=== PATIENT | female | born 1985 | race Caucasian/White ===

== ENCOUNTER 2017-01-10 01:31 | Emergency (ER) | payer MEDICAID ==
[~2017-01-10] VITALS: Ht 162.6 cm; Wt 72.7 kg
[2017-01-10 02:26] LABS: APPEARANCE,URINE CLOUDY (CLEAR); GLUCOSE, URINE (UA) NEGATIVE (NEGATIVE); KETONES,URINE NEGATIVE (NEGATIVE); LEUKOCYTE ESTERASE ,URINE LARGE (NEGATIVE); OCCULT BLOOD,URINE MODERATE (NEGATIVE); PROTEIN,URINE POS 1+ (NEGATIVE)
[2017-01-10 02:41] LABS: SQUAMOUS EPITHELIAL CELL,UR Moderate /LPF (None Seen)
[2017-01-10 02:42] LABS: WBC,URINE >100 /HPF (0-5)
[2017-01-10 02:43] LABS: CALCIUM OXALATE CRYSTALS,UR Rare /LPF (None Seen)
[2017-01-10] MEDS ORDERED: CefTRIAXone SODIUM 1 GM/VIAL IM ONE (05:15)
[2017-01-10] MEDS ORDERED: LIDOCAINE HCL/PF 1% 2 ML VIAL IM ONE (05:15)
[2017-01-10] MEDS ORDERED: NAPROXEN 250 MG TABLET PO ONE (05:15)
[2017-01-10] MEDS ORDERED: AZITHROMYCIN 250 MG TABLET PO ONE (05:15)
[2017-01-10 05:34] VITALS: BP 105/77
[2017-01-12 21:06] LABS: GC DNA N.A. AMPLIFY Negative (Negative)
== END 2017-01-10 05:36 | disposition home or self-care (01) ==
LOC: EMS 01:33
DX: N73.0 Acute parametritis and pelvic cellulitis (principal); F17.210 Nicotine dependence, cigarettes, uncomplicated
CPT/HCPCS: 81001; 84703; 87086; 87210; 87491; 87591; 96372; 99284; J0696; J3490; 99285

== ENCOUNTER 2017-11-21 20:47 | Emergency (ER) | payer MEDICAID, OTHER ==
[~2017-11-21] VITALS: Ht 162.6 cm; Wt 81.8 kg
[2017-11-21 22:11] VITALS: BP 124/83
== END 2017-11-21 22:40 | disposition left against medical advice (07) ==
LOC: EMS 20:49
DX: S01.91XA Laceration without foreign body of unspecified part of head, initial encounter (principal); F17.210 Nicotine dependence, cigarettes, uncomplicated; F19.90 Other psychoactive substance use, unspecified, uncomplicated; Z53.21 Procedure and treatment not carried out due to patient leaving prior to being seen by health care provider; W20.8XXA Other cause of strike by thrown, projected or falling object, initial encounter; Y93.89 Activity, other specified; Y92.89 Other specified places as the place of occurrence of the external cause; Y99.8 Other external cause status

== ENCOUNTER 2017-11-21 23:52 | Emergency (ER) | payer OTHER ==
[~2017-11-21] VITALS: Ht 167.6 cm; Wt 70.5 kg
[2017-11-21 23:55] VITALS: BP 113/85
== END 2017-11-22 00:49 | disposition left against medical advice (07) ==
LOC: EMS 23:53
DX: S01.91XA Laceration without foreign body of unspecified part of head, initial encounter (principal); F17.210 Nicotine dependence, cigarettes, uncomplicated; F19.90 Other psychoactive substance use, unspecified, uncomplicated; Z53.21 Procedure and treatment not carried out due to patient leaving prior to being seen by health care provider; X58.XXXA Exposure to other specified factors, initial encounter; Y93.89 Activity, other specified; Y92.89 Other specified places as the place of occurrence of the external cause; Y99.8 Other external cause status

== ENCOUNTER 2020-09-05 13:02 | Emergency (ER) | payer OTHER ==
[~2020-09-05] VITALS: Ht 162.6 cm; Wt 72.7 kg
[2020-09-05] MEDS ORDERED: MAG HYDROX/AL HYDROX/SIMETH 30 ML SUSP UDCUP PO ONE (14:15)
[2020-09-05] MEDS ORDERED: KETOROLAC TROMETHAMINE 30 MG/ML VIAL IVP ONE (14:15)
[2020-09-05] MEDS ORDERED: SODIUM CHLORIDE 0.9% 500 ML IV ONE (14:15)
[2020-09-05] MEDS ORDERED: FAMOTIDINE 10 MG/ML 2 ML VIAL IVP ONE (14:15)
[2020-09-05] MEDS ORDERED: ACETAMINOPHEN 500 MG TABLET PO ONE (14:15)
[2020-09-05] MEDS ORDERED: ONDANSETRON HCL 4 MG/2 ML VIAL IVP ONE (14:15)
[2020-09-05 14:51] LABS: BASOPHILS % (AUTO) 0.3 % (0.0-2.0); EOSINOPHILS % (AUTO) 0.7 % (1.0-6.0); HEMATOCRIT 31.9 % (36-46); HEMOGLOBIN 10.9 g/dL (12.0-16.0); LYMPHOCYTES # (AUTO) 0.9 K/uL (1.0-4.8); LYMPHOCYTES % (AUTO) 18.5 % (22.0-44.0); MEAN CORPUSCULAR HEMOGLOBIN 28.1 pg (26.0-34.0); MEAN CORPUSCULAR HGB CONC 34.4 G/dL (31.0-37.0); MEAN CORPUSCULAR VOLUME 82 fL (80-100); MONOCYTES # (AUTO) 0.3 K/uL (0.1-1.0); MONOCYTES % (AUTO) 5.8 % (2.0-9.0); NEUTROPHILS # (AUTO) 3.4 K/uL (1.8-7.7); NEUTROPHILS % (AUTO) 74.7 % (40.0-70.0); PLATELET COUNT (AUTO) 137 K/uL (150-450); RED BLOOD CELL COUNT(AUTO) 3.89 MIL/uL (4.00-5.20)
[2020-09-05 15:00] LABS: ANION GAP 7 mmol/L (8-16); CALCIUM, TOTAL 8.7 mg/dL (8.8-10.5); CARBON DIOXIDE 28 mmol/L (22-29); CHLORIDE 105 mmol/L (98-107); CREATININE 0.62 mg/dL (0.60-1.30); GLOMERULAR FILTR. RATE CALC > 60 mL/min (>60); GLUCOSE,RANDOM 118 mg/dL (70-110); POTASSIUM 3.1 mmol/L (3.5-5.1); SODIUM SERUM 140 mmol/L (136-145); UREA NITROGEN, BLOOD 15 mg/dL (7-18)
[2020-09-05 15:12] LABS: ALANINE AMINOTRANSFERASE 26 U/L (12-78); ALBUMIN 3.6 g/dL (3.4-5.0); ALKALINE PHOSPHATASE 57 U/L (46-116); ASPARTATE AMINOTRANSFERASE 20 U/L (15-37); BILIRUBIN,TOTAL 0.3 mg/dL (0.1-1.0); HCG,QUANTITATIVE < 1 mIU/mL (0-6); LIPASE 90 U/L (73-393)
[2020-09-05] MEDS ORDERED: POTASSIUM CHLORIDE 20 MEQ ER TABLET PO ONE (15:15)
[2020-09-05] MEDS ORDERED: SODIUM CHLORIDE 0.9% 100 ML ONE (15:36)
[2020-09-05] MEDS ORDERED: IOVERSOL 350 MG/ML 100 ML VIAL ONE (15:36)
[2020-09-05 15:46] LABS: APPEARANCE,URINE CLOUDY (CLEAR); BILIRUBIN,URINE NEGATIVE (NEGATIVE); GLUCOSE, URINE (UA) NEGATIVE (NEGATIVE); KETONES,URINE TRACE mg/dL (NEGATIVE); LEUKOCYTE ESTERASE ,URINE SMALL (NEGATIVE); NITRATE,URINE NEGATIVE (NEGATIVE); OCCULT BLOOD,URINE NEGATIVE (NEGATIVE); PH,URINE 6.5 (5.0-8.0); PROTEIN,URINE NEGATIVE (NEGATIVE)
[2020-09-05 15:54] LABS: AMPHET/METH SCREEN,URINE POSITIVE (NEGATIVE); BARBITURATE SCREEN, URINE NEGATIVE (NEGATIVE); BENZODIAZEPINES SCREEN,URINE NEGATIVE (NEGATIVE); CANNABINOID SCREEN,URINE NEGATIVE (NEGATIVE); COCAINE SCREEN,URINE NEGATIVE (NEGATIVE); METHADONE SCREEN, URINE NEGATIVE (NEGATIVE); OPIATE SCREEN,URINE NEGATIVE (NEGATIVE); PHENCYCLIDINE SCREEN,URINE NEGATIVE (NEGATIVE)
[2020-09-05 16:03] LABS: AMORPHOUS SEDIMENT,UR Few /LPF (None Seen); BACTERIA,URINE Few /HPF (None Seen); RBC,URINE 0-2 /HPF (0-2); SQUAMOUS EPITHELIAL CELL,UR Few /LPF (None Seen)
[2020-09-05 16:57] VITALS: BP 102/55
[2020-09-07] MEDS ORDERED: HYDR-4723 PO (11:21)
== END 2020-09-05 17:53 | disposition home or self-care (01) ==
LOC: EMS 13:02
DX: R10.33 Periumbilical pain (principal); R11.10 Vomiting, unspecified; F17.210 Nicotine dependence, cigarettes, uncomplicated; F19.90 Other psychoactive substance use, unspecified, uncomplicated
CPT/HCPCS: 36415; 80053; 80307; 81001; 83690; 84702; 85025; 96374; 96375; 99284; G0480; J1885; J2405; J3490; J7040; J7050; Q9967

== ENCOUNTER 2022-07-06 06:49 | Emergency (ER) | payer OTHER ==
[~2022-07-06] VITALS: Ht 162.6 cm; Wt 54.5 kg
[~2022-07-06 06:49] MED LIST: HYDR-4723 PO
[2022-07-06] MEDS ORDERED: SULFAMETHOX/TRIMETH DS 800-160 MG/TABLET PO ONE (08:00)
[2022-07-06] MEDS ORDERED: CefTRIAXone SODIUM 1 GM/VIAL IM ONE (08:00)
[2022-07-06] MEDS ORDERED: LIDOCAINE/PF 1% 2 ML VIAL IM ONE (08:00)
[2022-07-06 11:27] VITALS: BP 136/83
[2022-07-06] MEDS ORDERED: SULF-261 PO (11:54)
[2022-07-06] MEDS ORDERED: CEPH-558 PO (11:55)
== END 2022-07-06 12:30 | disposition home or self-care (01) ==
LOC: EMS 06:49
DX: S80.261A Insect bite (nonvenomous), right knee, initial encounter (principal); F17.210 Nicotine dependence, cigarettes, uncomplicated; W57.XXXA Bitten or stung by nonvenomous insect and other nonvenomous arthropods, initial encounter; Y93.89 Activity, other specified; Y92.89 Other specified places as the place of occurrence of the external cause; Y99.8 Other external cause status; Z86.14 Personal history of Methicillin resistant Staphylococcus aureus infection
CPT/HCPCS: 99283; 96372; J0696; J3490

== ENCOUNTER 2024-09-19 17:51 | Emergency (ER) | payer OTHER ==
[~2024-09-19] VITALS: Ht 162.6 cm; Wt 72.7 kg
[~2024-09-19 17:51] MED LIST changes: +CEPH-558 PO; -HYDR-4723 PO; +SULF-261 PO
[2024-09-19 17:55] VITALS: BP 146/96; PULSE 102; RESP 18; TEMP 98.2; O2SAT 100
[2024-09-19] MEDS ORDERED: POLYOS OU (18:55)
[2024-09-19] MEDS: IBUPROFEN 600 MG TABLET PO ONE (19:07)
[2024-09-19] MEDS: POLYMYXIN B/TRIMETHOPRIM 10 ML OPHTHALMIC SOLUTION OU ONE (19:07)
== END 2024-09-19 19:15 | disposition home or self-care (01) ==
LOC: EMS 17:51
DX: H10.89 Other conjunctivitis (principal); F17.210 Nicotine dependence, cigarettes, uncomplicated
CPT/HCPCS: 99283

== ENCOUNTER 2024-11-28 02:28 | Inpatient (IN) | payer OTHER ==
[~2024-11-28] VITALS: Ht 162.6 cm; Wt 72.7 kg
[~2024-11-28 02:28] MED LIST changes: +POLYOS OU
[2024-11-28] MEDS ORDERED: IOHEXOL 350 MG/ML 100 ML VIAL ONE (04:25)
[2024-11-28] MEDS: SODIUM CHLORIDE 0.9% 1,000 ML IV ONE (04:35)
[2024-11-28] MEDS: ONDANSETRON HCL 4 MG/2 ML VIAL IVP ONE (04:35)
[2024-11-28] MEDS: FentaNYL CITRATE PF 100 MCG/2 ML VIAL IVP ONE ×2 (04:35→14:20)
[2024-11-28 04:46] LABS: BASOPHILS % (AUTO) 0.3 % (0.0-2.0); EOSINOPHILS % (AUTO) 1.5 % (1.0-6.0); HEMATOCRIT 24.6 % (36-46); HEMOGLOBIN 7.9 g/dL (12.0-16.0); LYMPHOCYTES # (AUTO) 0.8 K/uL (1.0-4.8); LYMPHOCYTES % (AUTO) 9.7 % (22.0-44.0); MEAN CORPUSCULAR HEMOGLOBIN 23.2 pg (26.0-34.0); MEAN CORPUSCULAR HGB CONC 32.2 G/dL (31.0-37.0); MEAN CORPUSCULAR VOLUME 72 fL (80-100); MONOCYTES # (AUTO) 0.6 K/uL (0.1-1.0); NEUTROPHILS # (AUTO) 6.9 K/uL (1.8-7.7); NEUTROPHILS % (AUTO) 81.5 % (40.0-70.0); PLATELET COUNT (AUTO) 554 K/uL (150-450); RED BLOOD CELL COUNT(AUTO) 3.42 MIL/uL (4.00-5.20); WHITE BLOOD COUNT (AUTO) 8.4 K/uL (4.5-11.0)
[2024-11-28 04:49] LABS: RBC MORPHOLOGY COMMENT ABNORMAL RBC MORPH
[2024-11-28 04:51] LABS: ANION GAP 6 mmol/L (8-16); CARBON DIOXIDE 30 mmol/L (22-29); CHLORIDE 98 mmol/L (98-107); GLOMERULAR FILTR. RATE CALC > 60 mL/min (>60); GLUCOSE,RANDOM 95 mg/dL (70-110); POTASSIUM 4.2 mmol/L (3.5-5.1); SODIUM SERUM 134 mmol/L (136-145); UREA NITROGEN, BLOOD 9 mg/dL (7-18)
[2024-11-28 05:02] LABS: HCG,QUANTITATIVE 1 mIU/mL (0-6)
[2024-11-28 05:12] LABS: LACTIC ACID 1.3 mmol/L (0.4-2.0)
[2024-11-28] MEDS: PIPERACILLIN SODIUM/TAZOBACTAM 4.5 GM in DEXTROSE 5%-WATER 100 ML IV ONE (06:41)
[2024-11-28 06:49] LABS: APPEARANCE,URINE CLEAR (CLEAR); BILIRUBIN,URINE NEGATIVE (NEGATIVE); COLOR,URINE LIGHT YELLOW (YELLOW); GLUCOSE, URINE (UA) NEGATIVE (NEGATIVE); KETONES,URINE NEGATIVE (NEGATIVE); LEUKOCYTE ESTERASE ,URINE NEGATIVE (NEGATIVE); NITRATE,URINE NEGATIVE (NEGATIVE); OCCULT BLOOD,URINE NEGATIVE (NEGATIVE); PH,URINE 6.5 (5.0-8.0); PROTEIN,URINE TRACE mg/dL (NEGATIVE); UROBILINOGEN,URINE <=1.0 mg/dL (<=1.0)
[2024-11-28 06:54] LABS: ALBUMIN 2.1 g/dL (3.4-5.0); BILIRUBIN,DIRECT 0.1 mg/dL (0.00-0.20); BILIRUBIN,TOTAL 0.3 mg/dL (0.1-1.0); TOTAL PROTEIN, SERUM 8.5 g/dL (6.4-8.2)
[2024-11-28 07:01] LABS: PROTHROMBIN TIME 10.8 SEC (9.4-11.6)
[2024-11-28] MEDS: RINGERS SOLUTION,LACTATED 1,000 ML IV ONE (07:03)
[2024-11-28] MEDS: VANCOMYCIN HCL 1.75 GM in DEXTROSE 5%-WATER 250 ML IV ONE (07:04)
[2024-11-28 07:37] LABS: SPECIFIC GRAVITIY, URINE > 1.030 (1.003-1.030)
[2024-11-28 08:12] LABS: PH,URINE DRUG SCREEN 6.5 (5.0-8.0)
[2024-11-28 08:13] LABS: ALCOHOL, URINE DRUG SCREEN NEGATIVE (NEGATIVE); AMPHET/METH SCREEN,URINE POSITIVE (NEGATIVE); BARBITURATE SCREEN, URINE NEGATIVE (NEGATIVE); BENZODIAZEPINES SCREEN,URINE NEGATIVE (NEGATIVE); CANNABINOID SCREEN,URINE NEGATIVE (NEGATIVE); COCAINE SCREEN,URINE NEGATIVE (NEGATIVE); METHADONE SCREEN, URINE NEGATIVE (NEGATIVE); OPIATE SCREEN,URINE NEGATIVE (NEGATIVE); PHENCYCLIDINE SCREEN,URINE NEGATIVE (NEGATIVE)
[2024-11-28] MEDS: HYDROmorphone HCL 2 MG/ML SYRINGE IVP ONE (09:15)
[2024-11-28] MEDS ORDERED: LIDOCAINE/PF 1% 30 ML VIAL ONE (10:08)
[2024-11-28] MEDS ORDERED: MIDAZOLAM HCL 2 MG/2 ML VIAL ONE (10:09)
[2024-11-28] MEDS ORDERED: SODIUM BICARBONATE 50 MEQ/50 ML VIAL ONE (10:09)
[2024-11-28] MEDS ORDERED: FentaNYL CITRATE PF 100 MCG/2 ML VIAL ONE (10:09)
[2024-11-28] MEDS: DOXYCYCLINE HYCLATE 100 MG in DEXTROSE 5%-WATER 100 ML IV ONE (10:15)
[2024-11-28 12:06] VITALS: BP 103/63; PULSE 100; RESP 18; TEMP 100.6; O2SAT 96
[2024-11-28] MEDS: MIDAZOLAM HCL 2 MG/2 ML VIAL IVP ONE (14:20)
[2024-11-28] MEDS ORDERED: SODIUM CHLORIDE 0.9% 250 ML IV ONE ×2 (15:37→15:45)
[2024-11-28] MEDS: ACETAMINOPHEN 325 MG TABLET PO PRN (15:53)
[2024-11-28] MEDS: SODIUM CHLORIDE 0.9% 250 ML IV ONE (15:54)
[2024-11-28 16:03] VITALS: BP 88/72; PULSE 103; RESP 20; TEMP 102.7; O2SAT 100
[2024-11-28] MEDS ORDERED: MAGNESIUM HYDROXIDE SUSPENSION 30 ML UDCUP PO PRN (16:15)
[2024-11-28] MEDS ORDERED: ONDANSETRON HCL 4 MG/2 ML VIAL IVP PRN (16:15)
[2024-11-28] MEDS ORDERED: BISACODYL 10 MG RECTAL RECTAL SUPPOSITORY PR PRN (16:15)
[2024-11-28] MEDS ORDERED: ZOLPIDEM TARTRATE 5 MG TABLET PO PRN (16:15)
[2024-11-28] MEDS ORDERED: IPRATROPIUM BROMIDE 0.5 MG/2.5 ML NEB SOLUTION NEB PRN (16:15)
[2024-11-28] MEDS ORDERED: ALBUTEROL SULFATE 2.5 MG/0.5 ML NEB SOLUTION NEB PRN (16:15)
[2024-11-28] MEDS ORDERED: SODIUM CHLORIDE 0.9% 500 ML IV ONE (16:53)
[2024-11-28] MEDS: PIPERACILLIN/TAZO 3.375 GM/D5W 50 ML IV SCH (17:24)
[2024-11-28] MEDS: VANCOMYCIN HCL 1 GM/D5% WATER 200 ML IV SCH (17:30)
[2024-11-28] MEDS ORDERED: SODIUM CHLORIDE 0.9% 1,000 ML ONE (17:32)
[2024-11-28 19:05] VITALS: BP 101/60; PULSE 80; RESP 18; TEMP 98.8; O2SAT 97
[2024-11-28] MEDS: MetroNIDAZOLE 500 MG/NACL 100 ML IV SCH (20:09)
[2024-11-29] VITALS (7 sets, daily range): BP systolic 89–103; BP diastolic 60–68; PULSE 60–100; RESP 18–19; TEMP 98.1–102.9; O2SAT 95–98
[2024-11-29] MEDS: HEPARIN SODIUM,PORCINE 5,000 UNITS/ML VIAL SQ SCH (00:29)
[2024-11-29] MEDS: MORPHINE SULFATE 2 MG/ML SYRINGE IVP PRN (01:52)
[2024-11-29 07:53] LABS: ANION GAP 6 mmol/L (8-16); CALCIUM, TOTAL 8.1 mg/dL (8.8-10.5); CARBON DIOXIDE 27 mmol/L (22-29); CHLORIDE 97 mmol/L (98-107); CREATININE 0.52 mg/dL (0.60-1.30); GLOMERULAR FILTR. RATE CALC > 60 mL/min (>60); GLUCOSE,RANDOM 95 mg/dL (70-110); POTASSIUM 3.2 mmol/L (3.5-5.1); SODIUM SERUM 130 mmol/L (136-145); UREA NITROGEN, BLOOD 5 mg/dL (7-18)
[2024-11-29] MEDS: PANTOPRAZOLE SODIUM 40 MG DR TABLET PO SCH (08:38)
[2024-11-29] MEDS: ACETAMINOPHEN 325 MG TABLET PO PRN (08:47)
[2024-11-29] MEDS: POTASSIUM CHLORIDE 20 MEQ ER TABLET PO ONE (09:49)
[2024-11-29 11:41] LABS: APPEARANCE,URINE CLEAR (CLEAR); BILIRUBIN,URINE NEGATIVE (NEGATIVE); COLOR,URINE COLORLESS (YELLOW); GLUCOSE, URINE (UA) NEGATIVE (NEGATIVE); KETONES,URINE NEGATIVE (NEGATIVE); LEUKOCYTE ESTERASE ,URINE NEGATIVE (NEGATIVE); NITRATE,URINE NEGATIVE (NEGATIVE); OCCULT BLOOD,URINE NEGATIVE (NEGATIVE); PROTEIN,URINE NEGATIVE (NEGATIVE); SPECIFIC GRAVITIY, URINE 1.004 (1.003-1.030); UROBILINOGEN,URINE <=1.0 mg/dL (<=1.0)
[2024-11-29] MEDS: SODIUM CHLORIDE 0.9% 1,000 ML IV SCH (16:25)
[2024-11-29] MEDS: DOXYCYCLINE HYCLATE 100 MG in DEXTROSE 5%-WATER 100 ML IV SCH (16:29)
[2024-11-29] MEDS: HYDROCODONE/ACETAMINOPHEN 5-325 MG TABLET PO PRN (18:08)
[2024-11-29 19:08] LABS: INFLUENZA A-RTPCR,COMBO NEGATIVE (NEGATIVE); INFLUENZA B-RTPCR,COMBO NEGATIVE (NEGATIVE); RESPIRATORY SYNCYTIAL VRS-PCR NEGATIVE (NEGATIVE); SARS COVID19 RTPCR, COMBO NEGATIVE (NEGATIVE)
[2024-11-29] MEDS: RINGERS SOLUTION,LACTATED 500 ML IV ONE (22:20)
[2024-11-29] MEDS: CLINDAMYCIN 600 MG/D5% WATER 50 ML IV ONE (23:30)
[2024-11-30] VITALS (15 sets, daily range): BP systolic 85–115; BP diastolic 53–69; PULSE 62–92; RESP 16–18; TEMP 97.3–100.3; O2SAT 96–98
[2024-11-30 08:30] LABS: ANION GAP 9 mmol/L (8-16); CALCIUM, TOTAL 8.2 mg/dL (8.8-10.5); CARBON DIOXIDE 26 mmol/L (22-29); CHLORIDE 99 mmol/L (98-107); CREATININE 0.51 mg/dL (0.60-1.30); GLOMERULAR FILTR. RATE CALC > 60 mL/min (>60); GLUCOSE,RANDOM 90 mg/dL (70-110); POTASSIUM 3.3 mmol/L (3.5-5.1); SODIUM SERUM 134 mmol/L (136-145); UREA NITROGEN, BLOOD 6 mg/dL (7-18)
[2024-11-30] MEDS ORDERED: POTASSIUM CHL 10 MEQ/WATER 50 ML IV PRN (09:30)
[2024-11-30] MEDS ORDERED: MAGNESIUM SULFATE 2 GM/WATER 50 ML IV PRN (09:30)
[2024-11-30] MEDS ORDERED: MAGNESIUM SULFATE 4 GM/WATER 100 ML IV PRN (09:30)
[2024-11-30 09:52] LABS: BASOPHILS % (AUTO) 0.4 % (0.0-2.0); LYMPHOCYTES # (AUTO) 0.7 K/uL (1.0-4.8); LYMPHOCYTES % (AUTO) 13.2 % (22.0-44.0); MEAN CORPUSCULAR HEMOGLOBIN 22.6 pg (26.0-34.0); MEAN CORPUSCULAR HGB CONC 31.4 G/dL (31.0-37.0); MEAN CORPUSCULAR VOLUME 72 fL (80-100); MONOCYTES # (AUTO) 0.5 K/uL (0.1-1.0); NEUTROPHILS # (AUTO) 4.1 K/uL (1.8-7.7); NEUTROPHILS % (AUTO) 75.4 % (40.0-70.0); PLATELET COUNT (AUTO) 462 K/uL (150-450); RED BLOOD CELL COUNT(AUTO) 2.92 MIL/uL (4.00-5.20); RED CELL DISTRIBUTION WIDTH 17.4 % (11.5-14.5); WHITE BLOOD COUNT (AUTO) 5.4 K/uL (4.5-11.0)
[2024-11-30 10:10] LABS: HEMOGLOBIN 6.6 g/dL (12.0-16.0)
[2024-11-30 10:18] LABS: RBC MORPHOLOGY COMMENT ABNORMAL RBC MORPH
[2024-11-30 14:33] LABS: ALBUMIN 1.7 g/dL (3.4-5.0)
[2024-11-30] MEDS: CLINDAMYCIN 900 MG/D5% WATER 50 ML IV SCH (17:53)
[2024-11-30 21:12] LABS: HEMOGLOBIN 7.7 g/dL (12.0-16.0)
[2024-12-01] MEDS: POTASSIUM CHLORIDE 20 MEQ ER TABLET PO PRN (02:11)
[2024-12-01 04:25] VITALS: BP 88/66; PULSE 69; RESP 18; TEMP 97.7; O2SAT 98
[2024-12-01 06:22] VITALS: BP 102/67; PULSE 72; RESP 20; O2SAT 98
[2024-12-01 07:22] LABS: MAGNESIUM 1.7 mg/dL (1.80-2.40); POTASSIUM 3.6 mmol/L (3.5-5.1)
[2024-12-01 07:50] VITALS: BP 92/68; PULSE 71; RESP 18; TEMP 98.2; O2SAT 95
[2024-12-01 08:11] LABS: BASOPHILS % (AUTO) 0.3 % (0.0-2.0); EOSINOPHILS % (AUTO) 2.8 % (1.0-6.0); HEMATOCRIT 23.4 % (36-46); HEMOGLOBIN 7.5 g/dL (12.0-16.0); LYMPHOCYTES # (AUTO) 0.8 K/uL (1.0-4.8); LYMPHOCYTES % (AUTO) 21.8 % (22.0-44.0); MEAN CORPUSCULAR HEMOGLOBIN 23.5 pg (26.0-34.0); MEAN CORPUSCULAR HGB CONC 32.2 G/dL (31.0-37.0); MEAN CORPUSCULAR VOLUME 73 fL (80-100); MONOCYTES # (AUTO) 0.4 K/uL (0.1-1.0); MONOCYTES % (AUTO) 9.6 % (2.0-9.0); NEUTROPHILS # (AUTO) 2.5 K/uL (1.8-7.7); NEUTROPHILS % (AUTO) 65.5 % (40.0-70.0); PLATELET COUNT (AUTO) 482 K/uL (150-450); RED BLOOD CELL COUNT(AUTO) 3.21 MIL/uL (4.00-5.20); RED CELL DISTRIBUTION WIDTH 17.5 % (11.5-14.5); WHITE BLOOD COUNT (AUTO) 3.8 K/uL (4.5-11.0)
[2024-12-01] MEDS: MAGNESIUM OXIDE 400 MG TABLET PO PRN (11:04)
[2024-12-01] MEDS: AMPICILLIN SODIUM/SULBACTAM NA 3 GM in SODIUM CHLORIDE 0.9% 100 ML IV SCH (15:27)
[2024-12-01 20:00] VITALS: BP 107/82; PULSE 70; RESP 18; TEMP 97.9; O2SAT 96
[2024-12-02 04:00] VITALS: BP 106/72; PULSE 71; RESP 20; TEMP 97.9; O2SAT 97
[2024-12-02 07:13] VITALS: BP 94/65; PULSE 68; RESP 20; TEMP 98.1; O2SAT 98
[2024-12-02 08:52] LABS: BASOPHILS % (AUTO) 0.5 % (0.0-2.0); EOSINOPHILS % (AUTO) 2.2 % (1.0-6.0); HEMATOCRIT 24.3 % (36-46); LYMPHOCYTES # (AUTO) 0.9 K/uL (1.0-4.8); LYMPHOCYTES % (AUTO) 17.4 % (22.0-44.0); MEAN CORPUSCULAR HEMOGLOBIN 23.9 pg (26.0-34.0); MEAN CORPUSCULAR HGB CONC 32.9 G/dL (31.0-37.0); MEAN CORPUSCULAR VOLUME 73 fL (80-100); MONOCYTES # (AUTO) 0.5 K/uL (0.1-1.0); MONOCYTES % (AUTO) 8.5 % (2.0-9.0); NEUTROPHILS # (AUTO) 3.8 K/uL (1.8-7.7); NEUTROPHILS % (AUTO) 71.4 % (40.0-70.0); PLATELET COUNT (AUTO) 575 K/uL (150-450); RED BLOOD CELL COUNT(AUTO) 3.35 MIL/uL (4.00-5.20); RED CELL DISTRIBUTION WIDTH 17.8 % (11.5-14.5); WHITE BLOOD COUNT (AUTO) 5.3 K/uL (4.5-11.0)
[2024-12-02 09:08] LABS: ALANINE AMINOTRANSFERASE 43 U/L (12-78); ALBUMIN 1.7 g/dL (3.4-5.0); ALKALINE PHOSPHATASE 442 U/L (46-116); ANION GAP 7 mmol/L (8-16); ASPARTATE AMINOTRANSFERASE 24 U/L (15-37); BILIRUBIN,TOTAL 0.2 mg/dL (0.1-1.0); CALCIUM, TOTAL 8.5 mg/dL (8.8-10.5); CARBON DIOXIDE 27 mmol/L (22-29); CHLORIDE 103 mmol/L (98-107); CREATININE 0.46 mg/dL (0.60-1.30); GLOMERULAR FILTR. RATE CALC > 60 mL/min (>60); GLUCOSE,RANDOM 88 mg/dL (70-110); POTASSIUM 3.5 mmol/L (3.5-5.1); SODIUM SERUM 137 mmol/L (136-145); TOTAL PROTEIN, SERUM 7.5 g/dL (6.4-8.2); UREA NITROGEN, BLOOD 3 mg/dL (7-18)
[2024-12-02 15:05] VITALS: BP 101/70; PULSE 69; RESP 18; TEMP 98.4; O2SAT 99
[2024-12-02 20:05] VITALS: BP 117/86; PULSE 65; RESP 18; TEMP 98.4; O2SAT 99
[2024-12-03 05:11] VITALS: BP 111/76; PULSE 69; RESP 18; TEMP 97.9; O2SAT 98
[2024-12-03 08:05] VITALS: BP 101/73; PULSE 77; RESP 20; TEMP 98.1; O2SAT 98
[2024-12-03] MEDS ORDERED: IOHEXOL 350 MG/ML 100 ML VIAL ONE (11:10)
[2024-12-03] MEDS ORDERED: SODIUM CHLORIDE 0.9% 100 ML ONE (11:10)
[2024-12-03 15:30] VITALS: BP 102/76; PULSE 76; RESP 20; TEMP 98.1; O2SAT 98
[2024-12-03 19:33] VITALS: BP 106/77; PULSE 77; RESP 19; TEMP 98.2; O2SAT 99
[2024-12-04 04:13] VITALS: BP 113/74; PULSE 69; RESP 19; TEMP 97.9; O2SAT 99
[2024-12-04 08:38] VITALS: BP 106/75; PULSE 77; RESP 18; TEMP 98; O2SAT 99
[2024-12-04 15:58] VITALS: BP 103/72; PULSE 67; RESP 18; TEMP 98.1; O2SAT 98
[2024-12-04 20:30] VITALS: BP 107/71; PULSE 78; RESP 18; TEMP 98.1; O2SAT 96
[2024-12-05 05:22] VITALS: BP 99/64; PULSE 75; RESP 18; TEMP 98.1; O2SAT 96
[2024-12-05 08:25] VITALS: BP 100/74; PULSE 81; RESP 20; TEMP 98.2; O2SAT 100
[2024-12-05] MEDS ORDERED: SODIUM CHLORIDE 0.9% 500 ML IV ONE (09:53)
[2024-12-05] MEDS ORDERED: AMOX1TAB15 PO (12:04)
[2024-12-05] MEDS ORDERED: AMOX500T2 PO (12:04)
== END 2024-12-05 12:40 | disposition home or self-care (01) | DRG 720 ==
LOC: EMS 06:02 → EDH 10:08 → 6N 11:33
PROVIDERS: ADMIT Hospitalist; ATTEND Hospitalist
PROC: 0Y9630Z Drainage of Left Inguinal Region with Drainage Device, Percutaneous Approach (ICD-10-PCS; principal; 2024-11-28)
PROC: 30233N1 Transfusion of Nonautologous Red Blood Cells into Peripheral Vein, Percutaneous Approach (ICD-10-PCS; 2024-11-30)
DX: A41.9 Sepsis, unspecified organism (principal); E43 Unspecified severe protein-calorie malnutrition; M60.08 Infective myositis, other site; E87.1 Hypo-osmolality and hyponatremia; L02.211 Cutaneous abscess of abdominal wall; F15.10 Other stimulant abuse, uncomplicated; D50.9 Iron deficiency anemia, unspecified; B96.20 Unspecified Escherichia coli [E. coli] as the cause of diseases classified elsewhere; F19.10 Other psychoactive substance abuse, uncomplicated; N83.201 Unspecified ovarian cyst, right side; R16.1 Splenomegaly, not elsewhere classified; F17.210 Nicotine dependence, cigarettes, uncomplicated; D75.839 Thrombocytosis, unspecified; L02.214 Cutaneous abscess of groin; E87.6 Hypokalemia; E83.42 Hypomagnesemia; B95.1 Streptococcus, group B, as the cause of diseases classified elsewhere; N20.0 Calculus of kidney; N73.9 Female pelvic inflammatory disease, unspecified; Z90.49 Acquired absence of other specified parts of digestive tract; Z68.27 Body mass index [BMI] 27.0-27.9, adult
CPT/HCPCS: 0241U; 71045; 74177; 75989; 80048; 80053; 80076; 80307; 81003; 82040; 83605; 83735; 84132; 84702; 85014; 85018; 85025; 85610; 86850; 86900; 86901; 86923; 87040; 87070; 87075; 87186; 87205; 87491; 87591; 93971; 96361; 96365; 96368; 96375; 99291; J0295; J1171; J1644; J2250; J2270; J2405; J2543; J3010; J3370; J3490; J7030; J7040; J7050; J7060; J7120; P9016; 36415-L1; 36415-TC